=== PATIENT | female | born 1950 | race African-American/Black ===

== ENCOUNTER 2021-09-22 06:59 | Day surgery (SDC) | payer OTHER, SELFPAY ==
[~2021-09-22] VITALS: Ht 170.2 cm; Wt 74.4 kg
[~2021-09-22 06:59] MED LIST: UNK HTN MED
[2021-09-22 07:55] LABS: BASOPHILS % (AUTO) 0.8 % (0.0-2.0); EOSINOPHILS # (AUTO) 0.1 K/uL (0-0.4); EOSINOPHILS % (AUTO) 1.1 % (0.0-4.0); HEMATOCRIT 39.3 % (36-48); HEMOGLOBIN 13.5 g/dL (12.0-16.0); LYMPHOCYTES # (AUTO) 1.9 K/uL (2.5-16.5); LYMPHOCYTES % (AUTO) 35.2 % (20.5-51.1); MEAN CORPUSCULAR HEMOGLOBIN 29 pg (27-31); MEAN CORPUSCULAR HGB CONC 34 g/dL (33-37); MEAN CORPUSCULAR VOLUME 83.1 fL (80-94); MONOCYTES # (AUTO) 0.4 K/uL (0.8-1.0); MONOCYTES % (AUTO) 7.4 % (1.7-9.3); NEUTROPHILS # (AUTO) 3.1 K/uL (1.8-7.7); NEUTROPHILS % (AUTO) 55.5 % (42.2-75.2); PLATELET COUNT (AUTO) 217 K/uL (140-450); RED BLOOD CELL COUNT(AUTO) 4.72 MIL/uL (4.20-5.40); RED CELL DISTRIBUTION WIDTH 13.1 % (11.6-13.7); WHITE BLOOD COUNT (AUTO) 5.5 K/uL (4.8-10.8)
[2021-09-22 08:11] LABS: PROTHROMBIN TIME 9.9 secs (10.8-13.4)
[2021-09-22 08:13] LABS: ALBUMIN 4.1 g/dL (3.4-5.0); ANION GAP 13.4 (8-16); CARBON DIOXIDE 28.2 mmol/L (21-32); CREATININE 1.1 mg/dL (0.6-1.3); POTASSIUM 3.6 mmol/L (3.5-5.1); TOTAL BILIRUBIN 0.9 mg/dL (0.0-1.0)
[2021-09-22] MEDS ORDERED: PROPOFOL 200 MG/20 ML VIAL IV ONE ×2 (08:49→09:49)
[2021-09-22] MEDS ORDERED: fentaNYL citrate 0.05 MG/ML VIAL ONE (08:49)
[2021-09-22] MEDS ORDERED: ONDANSETRON 4 MG/2 ML VIAL IVP PRN (09:25)
[2021-09-22] MEDS ORDERED: diphenhydrAMINE 50 MG/ML VIAL IVP PRN (09:25)
[2021-09-22] MEDS ORDERED: LACTATED RINGERS 1,000 ML IV SCH (09:25)
[2021-09-22] MEDS ORDERED: MEPERIDINE 25 MG/ML SYR IVP PRN (09:25)
== END 2021-09-22 11:38 | disposition home or self-care (01) ==
LOC: MDS 06:59 → MMU 07:00 → MDS 11:38
PROVIDERS: ATTEND Internal Medicine Gastroenterology
DX: Z12.11 Encounter for screening for malignant neoplasm of colon (principal); D12.2 Benign neoplasm of ascending colon; K57.30 Diverticulosis of large intestine without perforation or abscess without bleeding; I10 Essential (primary) hypertension; Z86.010 Personal history of colon polyps; Z90.710 Acquired absence of both cervix and uterus; E78.00 Pure hypercholesterolemia, unspecified; Z79.82 Long term (current) use of aspirin; Z79.01 Long term (current) use of anticoagulants; Z79.899 Other long term (current) drug therapy
CPT/HCPCS: 36415; 45385; 71045; 80053; 85025; 85610; 85730; 87426; 93005; J2704; J3010; J7030; Q0092